=== PATIENT | male | born 1960 | race Caucasian/White ===

== ENCOUNTER 2022-05-23 11:44 | Inpatient (IN) | payer OTHER ==
[2022-05-23] VITALS (11 sets, daily range): BP systolic 125–153; BP diastolic 68–106
[~2022-05-23] VITALS: Ht 182.9 cm; Wt 100.0 kg
--- NOTE | 2022-05-23 11:45 | NUR ---
PT TO ROOM VIA WC
--- NOTE | 2022-05-23 11:55 | NUR ---
BBS DIMINISHED TO POSTERIOR BASES, WHEEZING NOTED TO LLL AND SARAH.
--- NOTE | 2022-05-23 12:01 | NUR ---
PT REPORTS THAT HIS AT HIS BEDSIDE IS "MY EMOTIONAL SUPPORT ANIMAL, AND SHE HAS TO STAY WITH ME OR I WILL HAVE AN ANXIETY ATTACK OR A PANIC ATTACK IF SHE DOESN'T STAY WITH ME. I CALL AND SPOKE WITH A NEW BRIAR WOOD SORTER BEFORE I CAME AND WAS TOLD THAT IT WOULD BE OKAY."
[2022-05-23 12:17] LABS: HEMATOCRIT 41.7 % (39.0-50.0); HEMOGLOBIN 13.5 g/dl (14.0-18.0); IMMATURE GRANULOCYTES 3.9 % (0.0-5.0); MEAN CELL VOLUME 93.1 fL CALC (80.0-100.0); MEAN CORPUSCULAR HGB 30.1 pG CALC (26.0-32.0); MEAN CORPUSCULAR HGB CONC 32.4 g/dL CAL (32.0-36.0); NEUT# 9.99 thou/uL (1.82-7.42); RED BLOOD COUNT 4.48 mill/uL (4.70-6.10); RED CELL DISTRI WIDTH 12.7 % (11.5-15.5)
[2022-05-23 12:22] LABS: GFR FOR AFR.AMER. > 60 ML/MIN (>=60 (CALC)); GFR OTHER RACES > 60 ML/MIN (>=60 (CALC))
[2022-05-23 12:35] LABS: ALBUMIN 4.5 g/dL (3.2-5.0); ALKALINE PHOSPHATASE 95 u/l (38-126); ANION GAP 19 (6-22 (CALC)); BILIRUBIN, TOTAL 0.4 mg/dL (0.0-1.4); BUN 18 mg/dL (9-20); BUN/CREATININE RATIO 17 (12-20 (CALC)); CARBON DIOXIDE 20 mmol/l (22-30); CHLORIDE 105 mmol/l (95-108); CREATININE 1.1 mg/dL (0.7-1.3); GFR FOR AFR.AMER. > 60 ML/MIN (>=60 (CALC)); GFR OTHER RACES > 60 ML/MIN (>=60 (CALC)); POTASSIUM 3.8 mmol/l (3.5-5.1); SGOT/AST 29 u/l (17-59); SODIUM 140 mmol/l (137-146); TOTAL PROTEIN 8.1 g/dL (6.3-8.2)
[2022-05-23] MEDS ORDERED: HYDROXYZ HCL25 MG PO (12:42)
[2022-05-23] MEDS ORDERED: 24HR ALLERGY R180 MG PO (12:42)
[2022-05-23] MEDS ORDERED: GABAPENTIN100 MG PO (12:43)
[2022-05-23] MEDS ORDERED: WELLBUTRIN150 M1 PO (12:45)
[2022-05-23] MEDS ORDERED: BACLOFEN10 MG PO (12:46)
--- NOTE | 2022-05-23 12:46 | NUR ---
BED REPOSITIONED FOR COMFORT. PT WITH AUDIBLE EXPIRATORY WHEEZIING, DECREASED RR NOTED -20BPM. O2 SATURATION 90-91% ON ROOM AIR. WILL CONTINUE TO MONITOR AND CONTINUE WITH PLAN OF CARE.
[2022-05-23] MEDS ORDERED: MIRTAZAPINE15 MG PO (12:47)
[2022-05-23] MEDS ORDERED: MELATONIN MAXIM10 MG PO (12:48)
[2022-05-23] MEDS ORDERED: SIMVASTATIN10 MG PO (12:49)
[2022-05-23] MEDS ORDERED: BISOPROL FUM5 MG PO (12:49)
[2022-05-23] MEDS ORDERED: PROTONIX40 M2 PO (12:50)
[2022-05-23] MEDS ORDERED: PRADAXA150 M1 PO (12:51)
[2022-05-23] MEDS ORDERED: ASPIRIN 81 LOW81 MG PO (12:51)
[2022-05-23] MEDS ORDERED: D325 MCG PO (12:52)
[2022-05-23] MEDS ORDERED: PREDNISONE5 MG PO (12:52)
[2022-05-23] MEDS ORDERED: ALLERGY NA50 MCG/ACT NS (12:54)
[2022-05-23] MEDS ORDERED: ALBUTEROL SUL0.083 % IN (12:55)
--- NOTE | 2022-05-23 12:56 | NUR ---
NO AUDIBLE WHEEZING NOTED AT THIS TIME.
--- NOTE | 2022-05-23 13:44 | NUR ---
PT AGREES WITH PLAN FOR ADMISSION. TELE BOX 16 IN USE. AT BEDSIDE. PER LIMNOLOGY TEACHER, PT ASSIGNED TO ROOM 273. FLOOR NURSE WILL CALL WHEN SHE IS READY TO RECEIVE PATIENT.
--- NOTE | 2022-05-23 15:02 | NUR ---
FLOOR NURSE NOT AVAILABLE FOR REPORT. CHARGE NURSE, EMMA NOTIFIED.
--- NOTE | 2022-05-23 15:06 | NUR ---
COMMUNICATION SENT FROM CHARGE NURSEEMMA TO DR. GUILLEN FOR ADMISSION ORDERES.
--- NOTE | 2022-05-23 15:52 | NUR ---
Admission Note Report Given to: RAFAEL MCELROY Transported by: X Wheelchair Stretcher Transported with: X Nurse Transporter X Patent IV O2 X Plow Holder Location: ICU X MS2 TRANSPORTED TO FLOOR AT 1530. BEDSIDE REPORT GIVEN ON FLOOR. PT TRANSPORTED TO FLOOR WITH BELONGINGS ACCOMPANIED BY . NO DISTRESS.
--- NOTE | 2022-05-23 16:24 | NUR ---
PT ARRIVED ON UNIT @ 1549 TRANSPORTED VIA W/C BY ED STAFF, ALERT AND ORIENTED X 4, ORIENTED TO ROOM AND CALL VIGIL AND SETTLED IN BED, TELE MONITOR IN PLACE. PT ANIKET WATT IS SHOUTING AND SCREAMING CONTINUOUSLY THEREFORE THIS PT IS MOVED TO ROOM 262 AND IS PLEASED ABOUT THE MOVE. SPOUSE IS WITH PT AND BOTH ARE REQUESTING TO HAVE SPOUSE STAY WITH PT, WILL ADDRESS THIS REQUEST WITH INSPECTOR ASSEMBLY
--- NOTE | 2022-05-23 20:00 | NUR ---
RECEIVED REPORT FROM ETTA GRAVES, NURSE. PT RESTING IN BED WITH EYES CLOSED, REGULAR CHEST RISE AND FALL, NO SIGN OF ACUTE DISTRESS. LAST SET OF VITALS TAKEN AT 1900 STABLE, WNL. SEE VS FLOWSHEET. IVF INFUSING AT PRESCRIBED RATE, IV SITE WITHOUT REDNESS, EDEMA, OR STREAKING, DRESSING CDI. NASAL CANNULA REMAINS IN PLACE , CURRENT OXYGEN FLOW AT 2 LPM VIA NC, SPO2> 94%. BED IS AT IT LOWEST, LOCKED POSITION WITH SIDE RAILS UP X2. PATIENTS BELONGINGS AT BEDSIDE. CALL LIGHT IN REACH.
[2022-05-24 00:07] VITALS: BP 127/81
--- NOTE | 2022-05-24 02:29 | NUR ---
RECEIVED REPORT FROM RAFAEL MCELROY. PT RESTING IN BED WITH EYES CLOSED, REGULAR CHEST RISE AND FALL, NO SIGN OF ACUTE DISTRESS. LAST SET OF VITALS TAKEN AT 1900 STABLE, WNL. SEE VS FLOWSHEET. PTS SPO2> 94%. IS AT BEDSIDE. SCHEDULED MEDICATION WAS DISCUSSED AND ADJUSTED PER DR GUILLEN. BED IS AT IT LOWEST, LOCKED POSITION WITH SIDE RAILS UP X2. PATIENTS BELONGINGS AT BEDSIDE. CALL LIGHT IN REACH.
--- NOTE | 2022-05-24 03:24 | NUR ---
PT LAYING IN BED WITH EYES CLOSED, APPEARS TO BE SLEEPING, APPEARS COMFORTABLE AND IN NO DISTRESS. RESPIRATIONS REGULAR AND UNLABORED. ITEMS REMAIN WITHIN REACH, CALL VIGIL REMAINS WITHIN REACH. BED REMAINS LOCKED AND IN LOW POSITION WITH BEDRAILS UP X2. IS AT BEDSIDE.
[2022-05-24 04:17] VITALS: BP 128/83
[2022-05-24 05:25] LABS: HEMOGLOBIN 12.7 g/dl (14.0-18.0); MEAN CELL VOLUME 92.9 fL CALC (80.0-100.0); MEAN CORPUSCULAR HGB 30.2 pG CALC (26.0-32.0); MEAN CORPUSCULAR HGB CONC 32.6 g/dL CAL (32.0-36.0); RED BLOOD COUNT 4.2 mill/uL (4.70-6.10); RED CELL DISTRI WIDTH 12.9 % (11.5-15.5)
[2022-05-24 05:39] LABS: BUN 19 mg/dL (9-20); BUN/CREATININE RATIO 21 (12-20 (CALC)); CHLORIDE 106 mmol/l (95-108); CREATININE 0.9 mg/dL (0.7-1.3); GFR FOR AFR.AMER. > 60 ML/MIN (>=60 (CALC)); GFR OTHER RACES > 60 ML/MIN (>=60 (CALC)); MAGNESIUM 2.2 mg/dL (1.6-2.3); POTASSIUM 4.3 mmol/l (3.5-5.1); SODIUM 142 mmol/l (137-146)
[2022-05-24 05:48] LABS: ANION GAP 15 (6-22 (CALC)); CARBON DIOXIDE 25 mmol/l (22-30)
[2022-05-24 06:28] VITALS: BP 133/75
--- NOTE | 2022-05-24 08:00 | NUR ---
PT A/OX3 ASSESSMENT AND VS COMPLETED. PT C/O COUGH . HEART RHYHTM NORMAL HAS HISTORY OF AFIB. BOWEL SOUNDS ACTIVE . RESPIRATIONS EVEN . NOW ON 2.5 L OXYGEN . COMTINOUS PULSE OX. NEB TREATMENT ORDERED. IV SITE NOTED. PT DENIES ADDITONAL NEED AT THE TIME ALL SAFETY PRECAUTIONS IN PLACE.
--- NOTE | 2022-05-24 09:33 | NUR ---
Joslyn attempted on Mr Weinberg. After his first breath, he went into a coughing spell and got very lightheaded and dizzy. Doesn't want to do anymore.
[2022-05-24 10:19] VITALS: BP 140/72
--- NOTE | 2022-05-24 11:45 | NUR ---
PT SPUTUM TO OBTAIN. PT DENIES ADDITIONAL NEEDS AT THE TIME.
[2022-05-24 14:07] VITALS: BP 143/76
--- NOTE | 2022-05-24 15:43 | NUR ---
PT TO BE PROVIDED INHALER. AND MEDICATE PER EMAR. PT DENIES ADDITIONAL NEEDS AT THE MOMENT.
--- NOTE | 2022-05-24 15:44 | NUR ---
PT TO BE MEDICATED PER EMAR. ABX. ALL SAFETY PRECAUTIONS IN PLACE.
[2022-05-24 19:19] VITALS: BP 144/78
--- NOTE | 2022-05-24 21:58 | NUR ---
PT APPEARED AGITATED I ENTERED THE ROOM. IS AT BEDSIDE, I ADVISED THEM THAT VISITING HOURS HAD ENDED. HE SAID THAT THEY HAVE SPECIAL PERMISSION FROM "[employer]." VOICE OVER ARTIST WAS NOTIFIED OF THIS INFORMATION, SHE APPROVED THE STAY FOR TONIGHT LONG NO DISRUPTION/I ASSURED HER THAT SHE WAS NOT A DISRUPTION. MEDICATIONS WERE REVEIWED AND ADMINISTERED. WE DISCUSSED POC/STATUS/OXYGEN LEVELS. I ENCOURAGED DEEP BREATHING EXERCISES, HE REPORTED THAT HE DID HAVE A FLUTTER VALVE EARLIER IN THE DAY, BUT THAT IT GAVE HIM A VERY BAD HEADACHE AND "DR. ARAUJO TOOK IT." IVF WERE RUNNING NS 50 FOR GENTLE HYDRATION, ALMOST COMPLETE/PT ASKED TO BE DISCONNECTED. LUNG SOUNDS ARE DIM/CLEAR WITH MILD SLIGHT WHEEZE IN R.LOWER BASE. SPUTUM CUP PROVIDED AND PT REMINDED TO PROVIDE SAMPLE IF AT ALL POSSIBLE, VERBALIZED UNDERSTANDING. HE REPORTS STILL FEELING SOB, OXYGEN SAT LEVEL 97% ON 3LNC. I ENCOURAGED DEEP BREATHING EXERCISES AND PURSED LIP BREATHING, THIS SEEMED TO BE HELPFUL. HE WAS ENCOURAGED TO CALL ANY NEEDS OR DISTRESSES ARISE.
[2022-05-25] VITALS (9 sets, daily range): BP systolic 126–145; BP diastolic 67–87
--- NOTE | 2022-05-25 01:00 | NUR ---
PT SLEEPING, AWOKE I ENTERED THE ROOM TO CHANGE IVF, BUT DENIED NEEDS. APPEARS NON-DISTRESSED. IS ASLEEP AT BEDSIDE. CALL LIGHT W/IN REACH.
--- NOTE | 2022-05-25 01:50 | NUR ---
PT REPORTED THAT HIS HAD EMPTIED 750CC OF URINE FROM URINAL. I THANKED HIM FOR REPORT AND ASKED HIM TO BE SURE AND KEEP RECORD AND LET US KNOW FOR STRICT I&O TRACKING.
--- NOTE | 2022-05-25 04:25 | NUR ---
PT REFUSED TO GET UP FOR DAILY WEIGHT, STATED HE WOULD DO IT BEFORE BREAKFAST IN THE MORNING. WILL ALERT DAY NURSE OF NEED.
[2022-05-25 05:27] LABS: HEMATOCRIT 38.4 % (39.0-50.0); HEMOGLOBIN 12.4 g/dl (14.0-18.0); MEAN CELL VOLUME 92.5 fL CALC (80.0-100.0); MEAN CORPUSCULAR HGB 29.9 pG CALC (26.0-32.0); MEAN CORPUSCULAR HGB CONC 32.3 g/dL CAL (32.0-36.0); NEUT# 8.55 thou/uL (1.82-7.42); RED BLOOD COUNT 4.15 mill/uL (4.70-6.10); RED CELL DISTRI WIDTH 12.9 % (11.5-15.5)
[2022-05-25 05:36] LABS: IMMATURE GRANULOCYTES 6.3 % (0.0-5.0)
[2022-05-25 05:49] LABS: ALBUMIN 3.7 g/dL (3.2-5.0); ALKALINE PHOSPHATASE 72 u/l (38-126); ANION GAP 12 (6-22 (CALC)); BILIRUBIN, TOTAL 0.3 mg/dL (0.0-1.4); BUN 25 mg/dL (9-20); BUN/CREATININE RATIO 23 (12-20 (CALC)); CARBON DIOXIDE 26 mmol/l (22-30); CHLORIDE 106 mmol/l (95-108); CREATININE 1.1 mg/dL (0.7-1.3); GFR FOR AFR.AMER. > 60 ML/MIN (>=60 (CALC)); GFR OTHER RACES > 60 ML/MIN (>=60 (CALC)); MAGNESIUM 2.2 mg/dL (1.6-2.3); POTASSIUM 4.2 mmol/l (3.5-5.1); SGOT/AST 43 u/l (17-59); SODIUM 139 mmol/l (137-146)
[2022-05-25 05:50] LABS: TOTAL PROTEIN 6.4 g/dL (6.3-8.2)
--- NOTE | 2022-05-25 07:33 | NUR ---
PT RESTING IN HIGH FOWLERS POSITION.FAMILY AT [facility].A/OX3 ASSESSMENT AND VS COMPLETED. HEART RHYTHM NORMAL ON TELE HISTORY OF AFIB.RESPIRATIONS UNLBAORED PT SOBON EXCERTION. PTON 3LOXYGEN .IV SITE NOTOED TO LFA. PT DENIES ADDITIONAL NEEDS AT THE TIME ALL SAEFTY PRECAUTIONS IN PLACE.
--- NOTE | 2022-05-25 11:43 | NUR ---
PT RESTING IN HIGH FOWLERS POSITION. PT ON 3L OXYGEN SATING LOW 90'S HIGHEST 93 . PT DROPS DOWN TO 88 OFF OXYGEN WHEN AMBULATING. [employer] CONSTRUCTION WORKER NOTIFIED . WALK TEST PER RT TO BE DONE .
--- NOTE | 2022-05-25 12:07 | NUR ---
called [facility] and spoke to medical records and they stated she will fax me the report immediately.
--- NOTE | 2022-05-25 15:56 | NUR ---
PT RESTING IN HIGH FOWLERS POSITION. PT DENIES ADDITIONAL NEEDS AT THE TIME ALLSAFETY PRECAUTIONS IN PLACE. WITH CALL LIGHT IN REACH.
--- NOTE | 2022-05-25 17:30 | NUR ---
REPORT RECEIVED FROM DOM, PT AWAKE ALERT AND ORIENTED SITTING UP IN BED HAVING MEAL, O2 @ 2L VIA NC IN PLACE, TELE MONITOR IN PLACE, ALL NEEDS ADDRESSED, SPOUSE AT BEDSIDE.
--- NOTE | 2022-05-25 20:00 | NUR ---
PHYSICAL ASSESMENT COMPLETE. PT CURRENTLY DENIES PAIN BUT IS SOB. RESPITORY THERAPY HAS BEEN CONTACTED. SCHEDULED MEDICATIONS AND PRN MEDICATION ADMINISTERED, SEE E-MAR. PTS IS AT BEDSIDE. PT DENIES ANY NEEDS AT THIS TIME. PLAN OF CARE REVIEWED, PT DENIES QUESTIONS, VERBALIZES UNDERSTANDING. ITEMS WITHIN REACH, BED LOCKED IN LOW POSITION W/ BEDRAILS UP X2. CALL VIGIL WITHIN REACH, AGREES TO CALL PRN.
--- NOTE | 2022-05-25 23:00 | NUR ---
PTS GIVEN HOME MEDICATION, 5 MG BISOPROLOL FUMARATE PER DR GOODEN FOR RVR A FIB MAINTAING AT A RATE OF 140. ECG PROVIDED AT 2256.
[2022-05-26] VITALS (97 sets, daily range): BP systolic 102–143; BP diastolic 63–97
--- NOTE | 2022-05-26 00:55 | NUR ---
PT ARRIVED TO UNIT AT 0051 ACCOMPANINED BY AND RAFAEL SIM. ASSESSMENT COMPLETED AT THIS TIME. HR 130'S-150'S A FIB. OTHER VITALS STABLE ON 2 L N/C. ORDERS FAXED TO PHARMACY FOR CARDIZEM GTT. LUNG SOUNDS: CRACKLES BILATERAL LOWER LOBES. BOWEL SOUNDS ACTIVE. PT STATES CHRONIC PAIN IN NECK, BACK, HIP, AND KNEE. A&OX3. 20G LFA FLUSHED AND WORKING FINE AT THIS TIME. SAFETY PRECAUTIONS IN PLACE.
--- NOTE | 2022-05-26 01:03 | NUR ---
PT SUSTAINED RVR A-FIB IN THE 150/160S. REPORTED TO DR GOODEN; PTS TRANSFERED TO ICU BED 1. SVETLANA HALL, GIVEN REPORT. ALL PT BELONGS WENT WITH PT.
--- NOTE | 2022-05-26 02:38 | NUR ---
20 MG CARDIZEM BLOUS GIVEN SLOW PUSH AT 0202. PT REMAINED A FIB HR 105-120'S BP REMAINS STABLE. CARDIZEM GTT STARTED AT 5 ML/HR AT 0230. HR CURRENTLY 98-110 AND BP 128/86. WILL CONTINUE TO MONITOR VITAL SIGNS.
--- NOTE | 2022-05-26 05:01 | NUR ---
PT APPEARS TO BE RESTING COMFORTABLY. CARDIZEM GTT INFUSING AT 5 ML/HR. HR 100-110 A FIB. BP 114/83. O2 95% ON 2L N/C. SAFETY PRECAUTIONS IN PLACE. REMAINS AT BEDSIDE.
[2022-05-26 05:36] LABS: HEMATOCRIT 41.1 % (39.0-50.0); HEMOGLOBIN 13.1 g/dl (14.0-18.0); MEAN CORPUSCULAR HGB 29.6 pG CALC (26.0-32.0); MEAN CORPUSCULAR HGB CONC 31.9 g/dL CAL (32.0-36.0); PLATELET COUNT 308 thou/uL (130-400); RED BLOOD COUNT 4.42 mill/uL (4.70-6.10)
[2022-05-26 05:58] LABS: ALBUMIN 3.8 g/dL (3.2-5.0); ALKALINE PHOSPHATASE 75 u/l (38-126); ANION GAP 13 (6-22 (CALC)); BUN 20 mg/dL (9-20); BUN/CREATININE RATIO 25 (12-20 (CALC)); CARBON DIOXIDE 25 mmol/l (22-30); CHLORIDE 107 mmol/l (95-108); CREATININE 0.8 mg/dL (0.7-1.3); GFR FOR AFR.AMER. > 60 ML/MIN (>=60 (CALC)); GFR OTHER RACES > 60 ML/MIN (>=60 (CALC)); MAGNESIUM 2.5 mg/dL (1.6-2.3); POTASSIUM 4.6 mmol/l (3.5-5.1); SGOT/AST 27 u/l (17-59); SODIUM 141 mmol/l (137-146); TOTAL PROTEIN 6.5 g/dL (6.3-8.2)
[2022-05-26 06:00] LABS: BILIRUBIN, TOTAL 0.5 mg/dL (0.0-1.4)
[2022-05-26 06:14] LABS: IMMATURE GRANULOCYTES 7.1 % (0.0-5.0)
[2022-05-26 06:15] LABS: MANUAL DIFFERENTIAL YES
[2022-05-26 06:18] LABS: BAND 1 % (0-8); PLATELET ESTIMATE NORMAL
--- NOTE | 2022-05-26 11:53 | NUR ---
Ipad consult with Dr Iván higginbotham. recommendations to be placed in the chart.
--- NOTE | 2022-05-26 21:30 | NUR ---
ASSESSMENT COMPLETED. MEDICATIONS GIVEN. PT STATES NO COMPLAINTS AT THIS TIME. CARDIAEM GTT INFUSING AT 10 MG/HR. PT REMAINS IN AFIB RATE 90-100'S. SAFETY PRECAUTIONS IN PLACE. AT BEDSIDE.
[2022-05-27] VITALS (42 sets, daily range): BP systolic 110–138; BP diastolic 75–94
--- NOTE | 2022-05-27 00:15 | NUR ---
PT CONVERTED FROM AFIB TO NSR AT 0013. CARDIZEM GTT INFUSING AT 5 MG/HR. BP STABLE. WILL CONTINUE TO MONITOR VITAL SIGNS.
--- NOTE | 2022-05-27 02:02 | NUR ---
CARDIZEM GTT OFF AT THIS TIME. HR 69 NSR. BP 128/79. TYLENOL GIVEN PER PT REQUEST FOR HEADACHE.
--- NOTE | 2022-05-27 04:15 | NUR ---
PT APPEARS TO BE RESTING COMFORTABLY. VSS. PT REMAINS IN NSR. SAFETY PRECAUTIONS IN PLACE.
--- NOTE | 2022-05-27 05:13 | NUR ---
LAB AT BEDSIDE.
[2022-05-27 05:45] LABS: HEMATOCRIT 40.7 % (39.0-50.0); HEMOGLOBIN 13.1 g/dl (14.0-18.0); MEAN CELL VOLUME 92.7 fL CALC (80.0-100.0); MEAN CORPUSCULAR HGB 29.8 pG CALC (26.0-32.0); MEAN CORPUSCULAR HGB CONC 32.2 g/dL CAL (32.0-36.0); RED BLOOD COUNT 4.39 mill/uL (4.70-6.10)
--- NOTE | 2022-05-27 07:00 | NUR ---
RECEIVE REPORT FROM SVETLANA HALL.
[2022-05-27 07:20] LABS: ANION GAP 13 (6-22 (CALC)); BUN 30 mg/dL (9-20); BUN/CREATININE RATIO 32 (12-20 (CALC)); CARBON DIOXIDE 25 mmol/l (22-30); CHLORIDE 106 mmol/l (95-108); CREATININE 0.9 mg/dL (0.7-1.3); GFR FOR AFR.AMER. > 60 ML/MIN (>=60 (CALC)); GFR OTHER RACES > 60 ML/MIN (>=60 (CALC)); MAGNESIUM 2.4 mg/dL (1.6-2.3); POTASSIUM 4.1 mmol/l (3.5-5.1); SODIUM 140 mmol/l (137-146)
--- NOTE | 2022-05-27 07:57 | NUR ---
PATIENT ALERT AND ORITNED X3. ASSESSMENT HEAD TO TOE COMPLETE. HEART RHYTM NORMAL AT THIS TIME. PATIENT WITH A.FIB HISTORY. BOWEL SOUNDS ACTIVE. RESPIRATIONS EVEN. NOW 3 L OXYGEN. CONTINOUS PULSE OX. NEB TREATMENT TOO. IV SITE NOTED. PATIENT REFER PAIN. PATIENT IS EDUCATED ABOUD MEDICATIONS AND NURSING PLAN FOR TODAY. PT AND IN THE ROOM REFER UNDERSTAND. SAFETY AND FALL PRECAUTIONS IN PLACE. CALL LIGHT WITIN REACH.
[2022-05-27] MEDS ORDERED: PREDNISONE10 MG PO (10:06)
[2022-05-27] MEDS ORDERED: ZITHROMAX250 MG PO (10:06)
--- NOTE | 2022-05-27 10:50 | NUR ---
CONSULT WITH TOOL BUILDER DONE
--- NOTE | 2022-05-27 11:06 | NUR ---
DISCHARGE PATIENT IS ORIENTED ON THE USE OF OXYGEN. HE IS ORIENTED ON THE NEED TO LEAVE THE HOSPITAL WITH OXYGEN. BUT HE REFER THAT THE DOES NOT WANT HIS TO DRIVE OUT. HE IS RE-ORIENTED THAT HE SHOULD LEAVE WITH THE OXYGEN BUT HE REFER THAT WIIL GO HOME WITHOUT OXYGEN. PT STABLE AT THIS TIME VITAL SIGNS 129/63 BP. O2 95% CANNULA 2 LITERS. PT IS EDUCATED ABOUD MEDICATIONS AT [facility] AND FOLLOW UP. PT AND REFER UNDERSTAND.
--- NOTE | 2022-06-01 09:55 | NUR ---
Pneumonia post discharge call completed today, 06/01/22. Pt. states he is doing very well. No fever, chills, or increased SOB. Pt. has taken prescribed medication without issue. [facility] Pt. is trying to have appt moved up for closer follow up. No questions or concerns voiced by patient. He is very appreciative of care received during his admission.
== END 2022-05-27 11:35 | disposition home or self-care (01) | DRG 191 ==
LOC: ED 11:44 → ED-I 12:56 → ED 13:13 → MS2 13:14 → ICU 05-26 01:00
PROVIDERS: Family Medicine; Nurse Practitioner; ADMIT Internal Medicine; ATTEND Internal Medicine
DX: J44.1 Chronic obstructive pulmonary disease with (acute) exacerbation (principal); E87.2 Acidosis; R09.02 Hypoxemia; I48.0 Paroxysmal atrial fibrillation; I10 Essential (primary) hypertension; G62.9 Polyneuropathy, unspecified; J32.9 Chronic sinusitis, unspecified; F41.9 Anxiety disorder, unspecified; Z79.02 Long term (current) use of antithrombotics/antiplatelets; Z87.891 Personal history of nicotine dependence; Z86.73 Personal history of transient ischemic attack (TIA), and cerebral infarction without residual deficits; Z20.822 Contact with and (suspected) exposure to COVID-19
CPT/HCPCS: G0378